=== PATIENT | male | born 1995 | race Caucasian/White ===

== ENCOUNTER 2023-11-20 09:55 | Inpatient (IN) | payer OTHER ==
[2023-11-20 10:25] VITALS: BMI 24.6
[2023-11-20] MEDS ORDERED: DICYCLOMINE HCL 10 MG CAPSULE PO PRN (11:29)
[2023-11-20] MEDS ORDERED: guaiFENesin 600 MG TABLET.ER (FP) PO PRN (11:29)
[2023-11-20] MEDS ORDERED: IBUPROFEN 400 MG TABLET (FP) PO PRN (11:29)
[2023-11-20] MEDS ORDERED: BISMUTH SUBSALICYLATE 524 MG/30 ML PO PRN (11:29)
[2023-11-20] MEDS ORDERED: BENZONATATE 200 MG CAPSULE PO PRN (11:29)
[2023-11-20] MEDS ORDERED: MAGNESIUM HYDROX 2400MG/30ML ORAL SUSPENSION 30 ML CUP PO PRN (11:29)
[2023-11-20] MEDS ORDERED: BENZOCAINE/MENTHOL (CHLORASEPTIC ) LOZENGE MM PRN (11:29)
[2023-11-20] MEDS ORDERED: ACETAMINOPHEN 325 MG TABLET (FP) PO PRN (11:29)
[2023-11-20] MEDS ORDERED: LOPERAMIDE HCL 2 MG CAPSULE PO PRN (11:29)
[2023-11-20] MEDS ORDERED: POLYETHYLENE GLYCOL (HEALTHYLAX) 3350 17 GM PACKET PO PRN (11:29)
[2023-11-20] MEDS ORDERED: IBUPROFEN 600 MG TABLET (FP) PO PRN (11:29)
[2023-11-20] MEDS ORDERED: MAG HYDROX/AL HYDROX/SIMETH 30 ML UNIT-DOSE CUP PO PRN (11:29)
[2023-11-20] MEDS ORDERED: NALOXONE HCL 0.4 MG/ML VIAL IM PRN (11:29)
[2023-11-20] MEDS ORDERED: NALOXONE (NARCAN) HCL 4 MG/0.1 ML SPRAY NS PRN (11:29)
[2023-11-20] MEDS ORDERED: ONDANSETRON *ODT* 4 MG TABLET SL PRN (11:29)
[2023-11-20] MEDS: THIAMINE 100 MG TABLET PO SCH (21:54)
[2023-11-20] MEDS: MELATONIN 5 MG TABLETS PO SCH (21:54)
[2023-11-20] MEDS: METHOCARBAMOL 500 MG TABLET PO PRN (21:55)
[2023-11-20] MEDS: hydrOXYzine PAMOATE 25 MG CAPSULE (FP) PO PRN (21:55)
[2023-11-21] MEDS: MELATONIN 5 MG TABLETS PO ONE (01:32)
[2023-11-21] MEDS: PRENATAL VITAMINS W/ FOLIC ACID TABLET (FP) PO SCH (10:55)
[2023-11-21 12:10] LABS: HEMATOCRIT 43.2 % (35.4-49); HEMOGLOBIN 14.4 GM/dL (11.7-16.9); MCH 29.9 pg (25.7-33.7); MCHC 33.3 g/dl (32.0-35.9); MEAN CELL VOLUME 89.8 fl (80-96); MEAN PLT VOLUME 8.9 fl (7.5-11.1); PLATELET COUNT 327 10^3/uL (134-434); RBC 4.81 M/mm3 (4.00-5.60); RDW 13.8 % (11.9-15.9); WHITE BLOOD COUNT 7.7 K/mm3 (4.0-10.0)
[2023-11-21 12:21] LABS: POTASSIUM 4.6 mmol/L (3.5-5.1)
[2023-11-21 12:28] LABS: ALBUMIN 4.3 g/dl (3.4-5.0); BILIRUBIN,TOTAL 0.3 mg/dL (0.2-1); BLOOD UREA NITROGEN 14.3 mg/dL (7-18); CALCIUM 10.5 mg/dL (8.5-10.1); CREATININE 0.9 mg/dL (0.55-1.3)
[2023-11-21 12:32] LABS: TOT PROT 8.3 g/dl (6.4-8.2)
[2023-11-24 10:12] VITALS: PULSE 80; RESP 17
[2023-11-24 13:18] VITALS: BP 133/81; TEMP 97.7
== END 2023-11-24 14:46 | disposition other institution (70) | DRG 774 ==
LOC: YASAS 09:55 → Y3N 12:00
PROVIDERS: ADMIT Allergy & Immunology; ATTEND Family Medicine Addiction Medicine
PROC: HZ2ZZZZ Detoxification Services for Substance Abuse Treatment (ICD-10-PCS; principal; 2023-11-20)
DX: F10.20 Alcohol dependence, uncomplicated (principal); F14.20 Cocaine dependence, uncomplicated; F19.24 Other psychoactive substance dependence with psychoactive substance-induced mood disorder; F41.9 Anxiety disorder, unspecified; F32.9 Major depressive disorder, single episode, unspecified; Z21 Asymptomatic human immunodeficiency virus [HIV] infection status; G47.00 Insomnia, unspecified; Z87.891 Personal history of nicotine dependence
CPT/HCPCS: 36415; 80053; 80305; 80307; 85027; 86593; 86780; 87811; 93005; 93010

== ENCOUNTER 2023-11-24 14:42 | Inpatient (IN) | payer OTHER ==
[2023-11-24] MEDS ORDERED: LOPERAMIDE HCL 2 MG CAPSULE PO PRN (14:57)
[2023-11-24] MEDS ORDERED: METHOCARBAMOL 500 MG TABLET PO PRN (14:57)
[2023-11-24] MEDS ORDERED: BENZONATATE 200 MG CAPSULE PO PRN (14:57)
[2023-11-24] MEDS ORDERED: guaiFENesin 600 MG TABLET.ER (FP) PO PRN (14:57)
[2023-11-24] MEDS ORDERED: ACETAMINOPHEN 325 MG TABLET (FP) PO PRN (14:57)
[2023-11-24] MEDS ORDERED: POLYETHYLENE GLYCOL (HEALTHYLAX) 3350 17 GM PACKET PO PRN (14:57)
[2023-11-24] MEDS ORDERED: IBUPROFEN 600 MG TABLET (FP) PO PRN (14:57)
[2023-11-24] MEDS ORDERED: NALOXONE (NARCAN) HCL 4 MG/0.1 ML SPRAY NS PRN (14:57)
[2023-11-24] MEDS ORDERED: NALOXONE HCL 0.4 MG/ML VIAL IVPUSH PRN (14:57)
[2023-11-24] MEDS: MELATONIN 5 MG TABLETS PO SCH (21:02)
[2023-11-24] MEDS: THIAMINE 100 MG TABLET PO SCH (21:02)
[2023-11-24] MEDS: hydrOXYzine PAMOATE 25 MG CAPSULE (FP) PO PRN (21:04)
[2023-11-25] MEDS: PRENATAL VITAMINS W/ FOLIC ACID TABLET (FP) PO SCH (10:18)
[2023-11-25] MEDS: hydrOXYzine PAMOATE 50 MG CAPSULE (FP) PO PRN (14:22)
[2023-11-25] MEDS ORDERED: PATIENT'S OWN MEDICATION (NON-FORMULARY) (Dolutegravir Sodium/Lamivudine [Dovato 50-300 Mg PO SCH (15:00)
[2023-11-25] MEDS: DOLUTEGRAVIR SODIUM 50 MG TABLET (NON-FORMULARY) PO SCH (15:56)
[2023-11-26] MEDS: SUVOREXANT 10 MG TABLET PO PRN (21:07)
[2023-11-27] MEDS: SUVOREXANT 10 MG TABLET PO PRN (21:45)
[2023-11-28] MEDS: LACTULOSE 20 GM/30 ML UDC (FOR ORAL USE ONLY) PO SCH (16:40)
[2023-11-29] MEDS: IBUPROFEN 400 MG TABLET (FP) PO PRN (15:44)
[2023-11-30] MEDS: BACLOFEN 10 MG TABLET (FP) PO PRN (09:38)
[2023-11-30] MEDS: SUVOREXANT 10 MG TABLET PO PRN (22:11)
[2023-12-01 17:18] LABS: HIV INTERPRETATION PRESUMPTIVE POSITIVE (NEGATIVE)
[2023-12-02] MEDS: SUVOREXANT 10 MG TABLET PO PRN (21:09)
[2023-12-04] MEDS: NALTREXONE HCL 50 MG TABLET PO ONE (13:18)
[2023-12-04] MEDS: AMMONIUM LACTATE 12% LOTION 225 GM BOTTLE TP PRN (13:20)
[2023-12-05] MEDS: NALTREXONE HCL 50 MG TABLET PO SCH (10:06)
[2023-12-05] MEDS: MAG HYDROX/AL HYDROX/SIMETH 30 ML UNIT-DOSE CUP PO PRN (18:57)
[2023-12-06] MEDS ORDERED: SUVOREXANT 10 MG TABLET PO PRN (22:00)
[2023-12-07] MEDS: NALTREXONE MICROSPHERES (VIVITROL) 380 MG DISP.SYRIN IM ONE (10:34)
[2023-12-07] MEDS: MAGNESIUM HYDROX 2400MG/30ML ORAL SUSPENSION 30 ML CUP PO PRN (21:17)
[2023-12-08] MEDS: NALTREXONE HCL 50 MG TABLET PO SCH (13:12)
[2023-12-08] MEDS: CYPROHEPTADINE HCL 4 MG TABLET PO SCH (17:23)
[2023-12-09] MEDS: BENZOCAINE/MENTHOL (CHLORASEPTIC ) LOZENGE MM PRN (06:43)
[2023-12-10] MEDS: hydrOXYzine PAMOATE 50 MG CAPSULE (FP) PO PRN (15:48)
[2023-12-10] MEDS: SUVOREXANT 10 MG TABLET PO PRN (21:04)
[2023-12-13 06:56] VITALS: RESP 18
[2023-12-15] MEDS ORDERED: hydrOXYzine PAMOATE 25 MG CAPSULE (FP) PO ONE (10:08)
[2023-12-17] MEDS: NALTREXONE HCL 50 MG TABLET PO SCH (13:02)
[2023-12-18 11:38] LABS: INR 0.93 (0.83-1.09); PROTHROMBIN TIME (PATIENT) 10.7 SEC (9.7-13.0)
[2023-12-21] MEDS: SUVOREXANT 10 MG TABLET PO PRN (21:34)
[2023-12-22 06:42] VITALS: BP 148/87; PULSE 79; TEMP 97.3
== END 2023-12-22 10:15 | disposition home or self-care (01) | DRG 772 ==
LOC: YASAS 14:42 → Y3E 14:43 → Y5N 12-12 14:54
PROVIDERS: ADMIT Allergy & Immunology; ATTEND Psychiatry & Neurology Pain Medicine
PROC: HZ42ZZZ Group Counseling for Substance Abuse Treatment, Cognitive-Behavioral (ICD-10-PCS; principal; 2023-11-24)
DX: F10.20 Alcohol dependence, uncomplicated (principal); F14.20 Cocaine dependence, uncomplicated; F19.982 Other psychoactive substance use, unspecified with psychoactive substance-induced sleep disorder; F19.980 Other psychoactive substance use, unspecified with psychoactive substance-induced anxiety disorder; F19.94 Other psychoactive substance use, unspecified with psychoactive substance-induced mood disorder; Z21 Asymptomatic human immunodeficiency virus [HIV] infection status; R21 Rash and other nonspecific skin eruption; E72.20 Disorder of urea cycle metabolism, unspecified; G47.00 Insomnia, unspecified
CPT/HCPCS: 36415; 82140; 82306; 83735; 85610; 87389; 87491; 87591; J0475